=== PATIENT | male | born 1970 | race African-American/Black ===

== ENCOUNTER 2018-01-21 21:33 | Emergency (ER) | payer BC ==
[2018-01-21] MEDS ORDERED: Lidocaine 1% 30 ML SDV INJECT STA (22:16)
[2018-01-21] MEDS: Lidocaine 1% 20 ML MDV ONE ×2 (22:17→22:21)
--- NOTE | 2018-01-21 22:34 | EDM.PDOC ---
ED HPI GENERAL MEDICAL PROBLEM - General Chief Complaint: Laceration Stated Complaint: LACERATION Time Seen by Provider: 01/21/18 21:58 Source of Information: Reports: Patient History Limitations: Reports: No Limitations - History of Present Illness INITIAL COMMENTS - FREE TEXT/NARRATIVE: Jeovany is a 47 year old male who presents to the ED with c/o a laceration to his left 2nd finger. He reports he was sawing a piece of wood. He reports that a small area was sticking up so he used his pocket knife to grind it down. Pocket knife slipped and cut the knuckle of his left 2nd finger. He reports he is up to date with his tetanus shot. Denies any numbness or tingling. Bleeding is controlled. Patient is able to move finger without difficulty. Cap refill is <2 seconds. Onset: Today, Sudden Onset Date: 01/21/18 Onset Time: 21:10 Location: Reports: Upper Extremity, Left Associated Symptoms: Reports: No Other Symptoms - Related Data Allergies Allergy/AdvReac Type Severity Reaction Status Date / Time bacitracin Allergy Rash Verified 01/21/18 22:01 [From Neosporin ([id number])] neomycin Allergy Rash Verified 01/21/18 22:01 [From Neosporin ([id number])] polymyxin B Allergy Rash Verified 01/21/18 22:01 [From Neosporin ([id number])] Home Meds: Home Meds metFORMIN HCl [Metformin HCl ER] 500 mg PO BID 01/21/18 [History] Past Medical History Endocrine/Metabolic History: Reports: Diabetes, Type I Social & Family History - Tobacco Use Smoking Status *Q: Current Some Day Smoker Years of Tobacco use: 20 Packs/Tins Daily: 0 - Caffeine Use Caffeine Use: Reports: None - Recreational Drug Use Recreational Drug Use: No ED ROS GENERAL - Review of Systems Review Of Systems: ROS reveals no pertinent complaints other than HPI. ED EXAM, SKIN/RASH Exam: See Below Exam Limited By: No Limitations General Appearance: Alert, WD/WN, No Apparent Distress Extremities: Normal Range of Motion, Normal Capillary Refill, Other (laceration to right knuckle, bleeding controlled). No: Redness Psychiatric: Normal Affect, Normal Mood ED SKIN PROCEDURES - Laceration/Wound Repair Left Middle Anterior Distal Finger Lac/Wound length In cm: 2 (left middle second finger) Appearance: Subcutaneous Distal NVT: Neuro & Vascular Intact, No Tendon Injury Anesthetic Type: Local Local Anesthesia - Lidocaine (Xylocaine): 1% Plain Local Anesthetic Volume: 2cc Skin Prep: Chlorhexidine (Hibiciens) Exploration/Debridement/Repair: No Foreign Material Found, Wound Margins Revised Closed with: Sutures Suture Size: other (5-0) # of Sutures: 5 Suture Type: Nylon Progress/Comments: Patient tolerated procedure well. No complications. Course - Vital Signs Last Recorded V/S: Last Vital Signs Temp 98 F 01/21/18 21:33 Pulse 80 01/21/18 21:33 Resp 18 01/21/18 21:33 BP 154/78 H 01/21/18 21:33 Pulse Ox 98 01/21/18 21:33 - Orders/Labs/Meds Meds: Medications Discontinued Medications Generic Name Dose Route Start Last Admin Trade Name Khangq PRN Reason Stop Dose Admin Lidocaine HCl Confirm 01/21/18 21:52 01/21/18 22:21 Xylocaine 1% Administered 01/21/18 21:53 20 ml Dose Administration 20 ml .ROUTE .STK-MED ONE Lidocaine HCl 20 ml 01/21/18 22:16 Xylocaine-Mpf 1% INJECT 01/21/18 22:17 NOW STA Departure - Departure Time of Disposition: 22:27 Disposition: Home, Self-Care 01 Condition: Good Clinical Impression: Hand laceration Qualifiers: Encounter type: initial encounter Foreign body presence: without foreign body Laterality: left Qualified Code(s): S61.412A - Laceration without foreign body of left hand, initial encounter - Discharge Information Instructions: Laceration Care, Adult, [id number], Stitches, [place], or Adhesive Wound Closure, [id number] Referrals: PCP,None [Primary Care Provider] - Forms: ED Department Discharge Additional Instructions: Follow up Sunday 01/28 for suture removal Keep area clean and dry Cover laceration while at work Tylenol or ibuprofen as needed for pain Monitor for s/s of infection such as redness, fever, foul smelling drainage. Notify clinic sooner if any of these symptoms.
== END 2018-01-21 22:31 | disposition home or self-care (01) ==
LOC: CC.ED 21:33
DX: S61.211A Laceration without foreign body of left index finger without damage to nail, initial encounter (principal); F17.210 Nicotine dependence, cigarettes, uncomplicated; E10.9 Type 1 diabetes mellitus without complications; Z88.1 Allergy status to other antibiotic agents; Z88.8 Allergy status to other drugs, medicaments and biological substances; W26.0XXA Contact with knife, initial encounter
CPT/HCPCS: 12001; 96372; 99282

== ENCOUNTER 2024-01-11 06:33 | Day surgery (SDC) | payer BC ==
[2024-01-11] MEDS: Lactated Ringers 1,000 ML IV SCH (06:51)
[2024-01-11] MEDS ORDERED: Flumazenil 0.1 MG/ML 10 ML MDV ONE (07:25)
[2024-01-11] MEDS ORDERED: Propofol 200 MG/20 ML SDV ONE (07:25)
[2024-01-11] MEDS ORDERED: Midazolam 1 MG/ML 2 ML SDV ONE (07:25)
[2024-01-11] MEDS ORDERED: Ketamine 200 MG/20 ML MDV ONE (07:25)
[2024-01-11] MEDS ORDERED: Glycopyrrolate 0.2 MG/ML SDV ONE (07:25)
[2024-01-11] MEDS ORDERED: fentaNYL 50 MCG/ML SDV ONE (07:25)
== END 2024-01-11 08:41 | disposition home or self-care (01) ==
LOC: CC.SDS 06:33
PROVIDERS: ATTEND Family Medicine
DX: Z12.11 Encounter for screening for malignant neoplasm of colon (principal); E66.9 Obesity, unspecified; Z68.39 Body mass index [BMI] 39.0-39.9, adult; Z87.891 Personal history of nicotine dependence; Z88.8 Allergy status to other drugs, medicaments and biological substances; Z01.818 Encounter for other preprocedural examination
CPT/HCPCS: J2250; J2704; J3010; J3490; J7120